=== PATIENT | female | born 1995 | race Caucasian/White ===

== ENCOUNTER 2024-06-23 10:54 | Outpatient (AMB) | payer MEDICAID, SELFPAY ==
[2024-06-23 11:07] VITALS: BP 99/58; PULSE 98; RESP 18; TEMP 36.2; O2SAT 98; BMI 20.1
--- NOTE | 2024-06-23 11:07 | AMB.OBINITIA ---
Vital Signs 06/23/24 11:07 Height 1.65 m Height Method Stated Weight 54.885 kg Weight Measurement Method Standing Scale BMI 20.1 BP 99/58 L Blood Pressure Source Automatic Cuff Blood Pressure Location Left Upper Arm Position Sitting Respiration 18 Pulse 98 Pulse Source Monitor Temp 97.2 F Temp Source Oral Pulse Oximetry (%) 98 Oxygen Delivery Method Room Air Allergies/Home Meds Allergies & Medications Allergies No Known Allergies Allergy (Verified 06/23/24 11:08) Medication Reconciliation No Known Home Medications 06/23/24 [History Confirmed 06/23/24] Intake Visit Data Collection New Patient or Established: New Patient (never been to [facility]) Reason for Visit:: Initial OB visit Seen by Clinical Staff ONLY (RN/MA): No Scientific Affairs Manager Required: No Do You Feel Safe at Home: Yes Authorities Contacted: N/A PCP or OBGYN visit in last 3 months: Yes Hx Now: Yes Are you currently on any form of Control: No Last menstrual period: 01/08/24 Pain Present Currently: No Pain Scale Used: Dewitt-Gil/Numerical Pain scale:: 0 Smoking Status Smoking Status: Never smoker Questionnaires Covid-19 Vaccine Questionnaire Has patient been vacinated for Covid-19 Have you been vacinated for Covid-19: No PHQ-9 PHQ-2 Over the last 2 weeks, how often have you been bothered by any of the following problems? 1. Little interest or pleasure in doing things: not at all 2. Feeling down, depressed, or hopeless: not at all Total score: 0 PHQ-9 3. Trouble falling or staying asleep, or sleeping too much: Not at all 4. Feeling tired or having little energy: Not at all 5. Poor appetite or overeating: Not at all 6. Feeling bad about yourself - or that you are a failure or have let yourself or your family down: Not at all 7. Trouble concentrating on things, such as reading the newspaper or watching television: Not at all 8. Moving or speaking so slowly that other people could have noticed? - Or the opposite - being so fidgety or restless that you have been moving around a lot more than usual: not at all 9. Thoughts that you would be better off or of hurting yourself in some way: Not at all Total score: 0 If you checked off any problems, how difficult have these problems made it for you to do your work, take care of things at home, or get along with other people?: not difficult at all Source: Developed by Drs. Johnny Art, Earline Dickerson, Miguel Mejia and colleagues, with an educational abhinav from [employer] Depression screen completed yes Social History Living Situation History Marital Status: Lives With: Family Housing: House Tobacco History Smoking Status: Never smoker Second Hand Smoke Exposure: No Alcohol History Alcohol Intake: Never Domestic Abuse History Do You Feel Safe at Home: Yes Past Medical History Past Medical History Have you ever been diagnosed with any of the following: Reproductive Problems Breast Cancer: No Endometriosis: No Fibroids: No Genital Herpes: No Gonorrhea: No Pelvic Inflammatory Disease: No Polycystic Ovarian Syndrome: No Previous Pregnancies: Yes (Vaginal delivery x 2 in the past) Syphilis: No Uterine Prolapse: No History of Present Illness HPI Narrative The patient is a 28-year-old -0-0-2 status post vaginal delivery x 2 in the past. Her children are young approximately 3 and 1. She is still breast-feeding her youngest. She delivered in [place] at a birthing center previously. Both deliveries were uncomplicated. She stated the first 1 was long the second was very fast. She did have stitches with both deliveries and no epidurals with either babies. OB Ultrasound Indication Indication: Size and dates OB Ultrasound Ultrasound technique: transabdominal Gestational sac assessment: Presence, location, size, shape: Live intrauterine at approximately 24 weeks seen. Will order structural survey. OB Initial Visit OB Flowsheet OB Flowsheet Initial Weight: Not Recorded Date <del>?</del> EGA Weight Edema CTX Effacement BP Fundal ht Pres Dilation Effacement Station Visit Note Alb Glu FHR Mov 06/23/24 <del>?</del> 24w 0d 54.885 kg 99/58 Fundal height 24. No bleeding no cramping. labs and structural survey ordered. 140 active Menstrual History Menstrual reliability: definite Flow: normal Menstrual regularity: regular Monthly: Yes Age at menarche: 13 On control pills at conception: No OB History : 3 Para: 2 Hx # Pregnancies: 0 Hx Total # of Abortions (Spontaneous & Elective): 0 # of Living Children: 2 Delivery History 1st : Child's name: SHAHID date: 09/23/21 sex: female Gestational age at delivery (weeks): 40 Delivery type: vaginal weight (lbs): 3175.147 g Delivery complications: None ,born at a birthing center History of depression before or after : No 2nd : Child's name: ELA date: 06/08/23 sex: male Gestational age at delivery (weeks): 39 Delivery type: vaginal Delivery complications: None. Rapid delivery. Born at the birthing center. History of depression before or after : No Infection History & Risk Evaluation History of STDs: none HIV risk evaluation: low risk Hepatitis B risk evaluation: low risk Patient or partner has history of Genital Herpes: No Varicella/chicken pox status: immunized Genetic Screening & History Genetic Screening/Teratology Counseling - Includes patient, baby's father, or anyone in either family with: 1. Patient's age 35 years or older as of estimated date of delivery: No 2. Thalassemia (Croatian, Iraqi, Mediterranean, or Background); MCV less than 80: No 3. Neural Tube Defect (Meningomyelocele, Spina Bifida, or Anencephaly): No 4. Congenital Heart Defect: No 5. Down Syndrome: No 6. Hudson-Sachs (Ashkenazi Restorationism, Cajun, Citizen Of [place]): No 7. Colby Disease (Ashkenazi Restorationism): No 8. Familial Dysautonomia (Ashkenazi Restorationism): No 9. Sickle Cell Disease or Trait (): No 10. Hemophilia or other blood disorders: No 11. Muscular Dystrophy: No 12. Cystic Fibrosis: No 13. Omer's Chorea: No 14. Mental Retardation/Autism: No 15. Other inherited genetic or chromosomal disorder: No 16. Maternal Metabolic Disorder (EG,TYPE 1 Diabetes, PKU): No 17. Patient or baby's father had a child with defects not listed above: No 18. Recurrent loss or a stillbirth: No 19. Medications (including supplements, vitamins, herbs or otc drugs)/illicit/recreational drugs/alcohol since last menstrual period: No 20. Any other: No Infection History 1. Live with someone with TB or exposed to TB: No 2. Rash or viral illness since last menstrual period: No 3. Hepatitis B,C: No Other (see comments) Source: [employer] Exam Narrative Physical exam: Fundal height 24 General General Appearance: alert, in no apparent distress, comfortable, cooperative, healthy appearing, well developed and well groomed Neck Neck exam: Present normal inspection, full ROM and trachea midline Chest Chest inspection: Present normal inspection and symmetric chest wall rise Resp Respiratory exam: Present normal lung sounds bilaterally Card Cardiovascular exam: Present regular rate, normal rhythm and normal heart sounds Abdominal Abdominal exam: Present soft and normal bowel sounds Extremities Extremities exam: Present normal inspection and full ROM Psych Psychiatric exam: Present normal affect and normal mood Skin Skin exam: Present warm, dry, intact and normal color Assessment & Plan Diagnosis / Problem List (1) : Status: Acute Qualifiers: Weeks of gestation: 24 weeks Qualified Code(s): Z3A.24 - 24 weeks gestation of Assessment and Plan: Pap deferred as it was just done. Patient is already 24 weeks. Order structural survey and all lab work. Increased calories as patient is still breast-feeding her 1-year-old. Patient desires natural labor and no induction and no epidural. She will follow-up in 4 weeks. LMP 01/08/2024 EDC 10/13/2024 Office Procedures OB Clinic LOC & Office Proc's Nursing/Assessment Patient Status: Initial/New Patient OB Clinic Nursing Assessment: BP Monitoring, Medication Reconciliation, Update PMH in EMR and Vital Signs OB Clinic Coordination of Care: Consent,records obtained, informed consent, Education Simp Pt/Fam and Staff clarify orders Special Needs: Heart tones New Patient Charge New Patient Point Assignment: [id number] New Patient Point Charge: BULK FILLER Level 3 ([id number])
== END 2024-06-23 11:37 | disposition home or self-care (01) ==
LOC: HODSOBC 10:54
PROVIDERS: PCP Physician Assistant; Referring Provider Physician Assistant; Supervising Provider Obstetrics & Gynecology; Visit Provider Obstetrics & Gynecology
DX: Z34.82 Encounter for supervision of other normal pregnancy, second trimester (principal); Z3A.24 24 weeks gestation of pregnancy
CPT/HCPCS: 99203; G0463

== ENCOUNTER 2024-07-21 10:28 | Outpatient (AMB) | payer MEDICAID, SELFPAY ==
[2024-07-21 10:42] VITALS: BP 102/60; PULSE 74; RESP 17; TEMP 36.7; O2SAT 98; BMI 20.9
--- NOTE | 2024-07-21 10:42 | AMB.OBVISIT ---
Vital Signs 07/21/24 10:42 Height 1.65 m Height Method Stated Weight 57.153 kg Weight Measurement Method Standing Scale BMI 20.9 BP 102/60 Blood Pressure Source Automatic Cuff Blood Pressure Location Right Upper Arm Position Sitting Respiration 17 Pulse 74 Pulse Source Monitor Temp 98.1 F Temp Source Temporal Artery Scan Pulse Oximetry (%) 98 Oxygen Delivery Method Room Air Allergies/Home Meds Allergies & Medications Allergies No Known Allergies Allergy (Verified 07/21/24 10:43) Medication Reconciliation No Known Home Medications 06/23/24 [History Confirmed 07/21/24] Intake Visit Data Collection New Patient or Established: Established Patient (seen at [facility] within 3 years) Reason for Visit:: OBC Seen by Clinical Staff ONLY (RN/MA): No Environmental Remediation Consultant Required: No Do You Feel Safe at Home: Yes Authorities Contacted: N/A PCP or OBGYN visit in last 3 months: Yes Date of Last PCP or OBGYN visit: 06/23/24 Hx Now: Yes Are you currently on any form of Control: No Pain Present Currently: Yes Pain Location: Back, Thigh and Leg Pain Scale Used: Dewitt-Gil/Numerical Pain scale:: 5 Smoking Status Smoking Status: Never smoker Questionnaires Covid-19 Vaccine Questionnaire Has patient been vacinated for Covid-19 Have you been vacinated for Covid-19: No PHQ-9 PHQ-2 Over the last 2 weeks, how often have you been bothered by any of the following problems? 1. Little interest or pleasure in doing things: not at all 2. Feeling down, depressed, or hopeless: not at all Total score: 0 PHQ-9 3. Trouble falling or staying asleep, or sleeping too much: Not at all 4. Feeling tired or having little energy: Not at all 5. Poor appetite or overeating: Not at all 6. Feeling bad about yourself - or that you are a failure or have let yourself or your family down: Not at all 7. Trouble concentrating on things, such as reading the newspaper or watching television: Not at all 8. Moving or speaking so slowly that other people could have noticed? - Or the opposite - being so fidgety or restless that you have been moving around a lot more than usual: not at all 9. Thoughts that you would be better off or of hurting yourself in some way: Not at all Total score: 0 If you checked off any problems, how difficult have these problems made it for you to do your work, take care of things at home, or get along with other people?: not difficult at all Source: Developed by Drs. Johnny Art, Earline Dickerson, Miguel Mejia and colleagues, with an educational abhinav from [employer]. Depression screen completed yes Social History Living Situation History Marital Status: Lives With: Family Housing: House Housing Other:: Patient stays home with her 3-year-old daughter and 1-year-old son. 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 No complications. History of Present Illness HPI Narrative The patient is a 28-year-old -0-0-2 who is from the [place] area and had both of her babies at a birthing center previously. She is a 3-year-old and 1-year-old. She moved to [place] to be closer to family. She stays at home with her children. Care OB Visit Log OB Flowsheet Initial Weight: Not Recorded Date <del>?</del> EGA Weight BP Alb Glu CTX Pres Fundal ht FHR Mov Dilation Station Effacement Hx Notes Visit Note 06/23/24 <del>?</del> 24w 0d 54.885 kg 99/58 140 active Fundal height 24. No bleeding no cramping. labs and structural survey ordered. 07/21/24 <del>?</del> 28w 0d 57.153 kg 102/60 28 150 active Positive movement no bleeding no loss of fluids. I had ordered a structural survey this has not been authorized yet. Order again. NEVA Calculator Estimated Delivery Date Method Current WG Current Estimate 10/13/24 Ultrasound #1 28w 0d Other Estimates 10/14/24 LMP (Certain) 27w 6d Comments: LMP 01/08/2024. Patient is a 28-year-old -0-0-2 labs: O+/antibody negative/RPR NR/Rubella Nonimmune/HepBSag -/HIV-/GC -/chlamydia negative/urine culture negative Ordered GCT. Missed NIPT. Expected Delivery Route/Plan Patient had vaginal delivery x 2 in the past and a birthing center. Anticipate . Patient will probably want to labor and deliver as natural as possible. Notes Visit Date: 06/23/24 Last Updated by: Latrice Arenas (OB Clinic)MD Patient is a 28-year-old -0-0-2 status post vaginal delivery x 2 in the past both were delivered in [place] and both at a birthing center. Patient has moved home this . She is staying home to take care of her children. She is still breast-feeding the 1-year-old. Her mother is with her today as is her 3-year-old daughter. LMP 01/08/2024 EDC 10/13/2024. Office Procedures OB Clinic LOC & Office Proc's Nursing/Assessment Patient Status: Established Patient OB Clinic Nursing Assessment: Medication Reconciliation, Update PMH in EMR and Vital Signs OB Clinic Coordination of Care: Complex Care and Chronic Disease 1-5, Consent,records obtained, informed consent, Education Simp Pt/Fam, Lab and Imaging orders and Staff clarify orders Special Needs: Heart tones Established Patient Charge Established Patient Point Assignment: 130 Established Patient Point Charge: EP Level 4 (120-155)
== END 2024-07-21 11:18 | disposition home or self-care (01) ==
LOC: HODSOBC 10:28
PROVIDERS: PCP Physician Assistant; Referring Provider Physician Assistant; Supervising Provider Obstetrics & Gynecology; Visit Provider Obstetrics & Gynecology
DX: Z34.83 Encounter for supervision of other normal pregnancy, third trimester (principal); Z3A.28 28 weeks gestation of pregnancy
CPT/HCPCS: 99214; G0463

== ENCOUNTER → 2024-07-27 | Outpatient (CLI) | payer MEDICAID, SELFPAY ==
--- NOTE | 2024-07-27 09:09 | XR_ITS ---
Examination: age complete after first trimester TECHNIQUE: Multiple transabdominal sonographic images pelvis Date and time: July 27, 2024 0924 hours INDICATIONS: 24 week by history unknown presentation. FINDINGS: Viable intrauterine gestation cephalic presentation spine anterior Cardiac motion 132 BPM Placenta anterior grade 2 Umbilical cord insertion seen Amniotic fluid index 14.4 cm Cervix 3.4 cm Ovaries obscured by bowel gas Estimated gestational age 28 weeks 5 days Estimated weight 1283 g IMPRESSION: Viable intrauterine gestation cephalic presentation
== END | disposition home or self-care (01) ==
PROVIDERS: PCP Nurse Practitioner Primary Care; Referring Provider Obstetrics & Gynecology; Visit Provider Obstetrics & Gynecology
DX: Z3A.24 24 weeks gestation of pregnancy (principal)
CPT/HCPCS: 76810

== ENCOUNTER 2024-09-24 10:31 | Outpatient (AMB) | payer MEDICAID, SELFPAY ==
[2024-09-24 11:08] VITALS: BP 113/65; PULSE 77; RESP 16; TEMP 36.6; O2SAT 97; BMI 22.5
--- NOTE | 2024-09-24 11:08 | OBCLNT_ITS ---
Vital Signs 09/24/24 11:08 Height 1.65 m Height Method Stated Weight 61.292 kg Weight Measurement Method Standing Scale BMI 22.5 BP 113/65 Blood Pressure Source Automatic Cuff Blood Pressure Location Left Upper Arm Position Sitting Respiration 16 Pulse 77 Pulse Source Monitor Temp 98 F Temp Source Oral Pulse Oximetry (%) 97 Oxygen Delivery Method Room Air Allergies/Home Meds Allergies & Medications Allergies No Known Allergies Allergy (Verified 09/24/24 11:09) Medication Reconciliation No Known Home Medications 06/23/24 [History Confirmed 09/24/24] Intake Visit Data Collection New Patient or Established: Established Patient (seen at [facility] within 3 years) Reason for Visit:: CARE Seen by Clinical Staff ONLY (RN/MA): No Cell Manager Required: No Do You Feel Safe at Home: Yes Authorities Contacted: N/A PCP or OBGYN visit in last 3 months: Yes Hx Now: Yes Are you currently on any form of Control: No Pain Present Currently: No Pain Scale Used: Dewitt-Gil/Numerical Pain scale:: 0 Smoking Status Smoking Status: Never smoker Questionnaires Covid-19 Vaccine Questionnaire Has patient been vacinated for Covid-19 Have you been vacinated for Covid-19: Yes PHQ-9 PHQ-2 Over the last 2 weeks, how often have you been bothered by any of the following problems? 1. Little interest or pleasure in doing things: not at all 2. Feeling down, depressed, or hopeless: not at all Total score: 0 PHQ-9 3. Trouble falling or staying asleep, or sleeping too much: Not at all 4. Feeling tired or having little energy: Not at all 5. Poor appetite or overeating: Not at all 6. Feeling bad about yourself - or that you are a failure or have let yourself or your family down: Not at all 7. Trouble concentrating on things, such as reading the newspaper or watching television: Not at all 8. Moving or speaking so slowly that other people could have noticed? - Or the opposite - being so fidgety or restless that you have been moving around a lot more than usual: not at all 9. Thoughts that you would be better off or of hurting yourself in some way: Not at all Total score: 0 Source: Developed by Drs. Johnny L. Earline Art Kurt Kroenke and colleagues, with an educational abhinav from [facility]. Depression screen completed yes Social History Living Situation History Marital Status: Lives With: Family Housing: House Housing Other:: Patient stays home with her 3-year-old daughter and 1-year-old son. 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 Care OB Visit Log OB Flowsheet Initial Weight: Not Recorded Date -?-?-?-?-?-?-?-?-?-?-?-?- EGA Weight BP Alb Glu CTX Pres Fundal ht FHR Mov Dilation Station Effacement Hx Notes Visit Note 06/23/24 -?-?-?-?-?-?-?-?-?-?-?-?- 24w 0d 54.885 kg 99/58 140 active Fundal height 24. No bleeding no cramping. labs and structural survey ordered. 07/21/24 -?-?-?-?-?-?-?-?-?-?-?-?- 28w 0d 57.153 kg 102/60 28 150 active Positive movement no bleeding no loss of fluids. I had ordered a structural survey this has not been authorized yet. Order again. 09/24/24 -?-?-?-?-?-?-?-?-?-?-?-?- 37w 2d 61.292 kg 113/65 occasional cephalic 37 active Patient feels good movement and feels pressure. Reny mcgrath has a plan. NEVA Calculator Estimated Delivery Date Method Current WG Current Estimate 10/13/24 Ultrasound #1 37w 2d Other Estimates 10/14/24 LMP (Certain) 37w 1d Expected Delivery Route/Plan Patient had vaginal delivery x 2 in the past at a birthing center. Anticipate . Patient will probably want to labor and deliver as natural as possible. Specific Issue/Plans labs up-to-date on the chart: O+/antibody negative/rubella nonimmune/RPR nonreactive/HIV negative/GC negative/chlamydia negative/urine culture negative/1 hour glucose elevated 158/no 3-hour glucose [facility] 28 [facility] SS WNL Notes Visit Date: 09/24/24 Last Updated by: Latrice Arenas (OB Clinic)MD Discussed patient's plan. She has nothing written but she read it to me on her phone. She prefers no IV. She will take IM Pitocin. She prefers delayed cord clamping. She wants to ambulate in labor. She wants to go as natural as possible. She is also requesting no male providers. We did discuss at length that I am not sure I can guarantee that she is going to have a female provider. She does not want to be induced. She would like to leave the hospital soon as possible with her baby. She is going to decline vitamin K eyedrops and hep B vaccine for the baby. Patient delivered at [facility] last time in [place]. Her sister is present today who will be there and labor. Visit Date: 06/23/24 Last Updated by: Latrice Arenas (OB Clinic)MD Patient is a 28-year-old -0-0-2 status post vaginal delivery x 2 in the past both were delivered in [place] and both at a birthing center. Patient has moved home this . She is staying home to take care of her children. She is still breast-feeding the 1-year-old. Her mother is with her today as is her 3-year-old daughter. LMP 01/08/2024 EDC 10/13/2024. Office Procedures OB Clinic LOC & Office Proc's Nursing/Assessment Patient Status: Established Patient OB Clinic Nursing Assessment: Medication Reconciliation, Update PMH in EMR and Vital Signs OB Clinic Coordination of Care: Complex Care and Chronic Disease 1-5, Consent,records obtained, informed consent, Education Simp Pt/Fam, 1 Ins Authorization, Lab and Imaging orders, Results/Orders obtained and Staff clarify orders Special Needs: Heart tones Established Patient Charge Established Patient Point Assignment: 150 Established Patient Point Charge: EP Level 4 (120-155)
== END 2024-09-24 11:48 | disposition home or self-care (01) ==
LOC: HODSOBC 10:31
PROVIDERS: PCP Obstetrics & Gynecology; Referring Provider Obstetrics & Gynecology; Supervising Provider Obstetrics & Gynecology; Visit Provider Obstetrics & Gynecology
DX: Z34.83 Encounter for supervision of other normal pregnancy, third trimester (principal); Z3A.37 37 weeks gestation of pregnancy
CPT/HCPCS: 99214; G0463

== ENCOUNTER 2024-10-04 09:50 | Outpatient (AMB) | payer MEDICAID, SELFPAY ==
--- NOTE | 2024-10-04 09:52 | OBCLNT_ITS ---
Vital Signs 10/04/24 09:58 Height 1.65 m Height Method Stated Weight 60.781 kg Weight Measurement Method Standing Scale BMI 22.3 BP 103/67 Blood Pressure Source Automatic Cuff Blood Pressure Location Left Upper Arm Position Sitting Respiration 16 Pulse 85 Pulse Source Monitor Temp 97 F Temp Source Oral Pulse Oximetry (%) 98 Oxygen Delivery Method Room Air Allergies/Home Meds Allergies & Medications Allergies No Known Allergies Allergy (Verified 10/04/24 10:00) Medication Reconciliation No Known Home Medications 06/23/24 [History Confirmed 10/04/24] Intake Visit Data Collection New Patient or Established: Established Patient (seen at [facility] within 3 years) Reason for Visit:: CARE Seen by Clinical Staff ONLY (RN/MA): No Actuary Manager Required: No Do You Feel Safe at Home: Yes Authorities Contacted: N/A PCP or OBGYN visit in last 3 months: Yes Hx Now: Yes Are you currently on any form of Control: No Pain Present Currently: No Pain Scale Used: Dewitt-Gil/Numerical Pain scale:: 0 Smoking Status Smoking Status: Never smoker Questionnaires Covid-19 Vaccine Questionnaire Has patient been vacinated for Covid-19 Have you been vacinated for Covid-19: No PHQ-9 PHQ-2 Over the last 2 weeks, how often have you been bothered by any of the following problems? 1. Little interest or pleasure in doing things: not at all 2. Feeling down, depressed, or hopeless: not at all Total score: 0 PHQ-9 3. Trouble falling or staying asleep, or sleeping too much: Not at all 4. Feeling tired or having little energy: Not at all 5. Poor appetite or overeating: Not at all 6. Feeling bad about yourself - or that you are a failure or have let yourself or your family down: Not at all 7. Trouble concentrating on things, such as reading the newspaper or watching television: Not at all 8. Moving or speaking so slowly that other people could have noticed? - Or the opposite - being so fidgety or restless that you have been moving around a lot more than usual: not at all 9. Thoughts that you would be better off or of hurting yourself in some way: Not at all Total score: 0 Source: Developed by Drs. Johnny LEarline Amaya Kurt Kroenke and colleagues, with an educational abhinav from [employer]. Depression screen completed yes Social History Living Situation History Lives With: Family Housing: House Housing Other:: Patient stays home with her 3-year-old daughter and 1-year-old son. 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 No complications Other Relevant History: Patient has no chronic medical problems including diabetes asthma or hypertension History of Present Illness HPI Narrative The patient is a 29-year-old -0-0-2 who presents for care. Care OB Visit Log OB Flowsheet Initial Weight: Not Recorded Date -?-?-?-?-?-?-?-?-?-?-?-?- EGA Weight BP Alb Glu CTX Pres Fundal ht FHR Mov Dilation Station Effacement Hx Notes Visit Note 06/23/24 -?-?-?-?-?-?-?-?-?-?-?-?- 24w 0d 54.885 kg 99/58 140 active Fundal height 24. No bleeding no cramping. labs and structural survey ordered. 07/21/24 -?-?-?-?-?-?-?-?-?-?-?-?- 28w 0d 57.153 kg 102/60 28 150 active Positive movement no bleeding no loss of fluids. I had ordered a structural survey this has not been authorized yet. Order again. 09/24/24 -?-?-?-?-?-?-?-?-?-?-?-?- 37w 2d 61.292 kg 113/65 occasional cephalic 37 active Patient feels good movement and feels pressure. Reny mcgrath has a plan. 10/04/24 -?-?-?-?-?-?-?-?-?-?-?-?- 38w 5d 60.781 kg 103/67 occasional cephalic 36 143 active 1.5 -1 80 Patient feels pressure. Good movement no vaginal bleeding Group B strep drawn today NEVA Calculator Estimated Delivery Date Method Current WG Current Estimate 10/13/24 Ultrasound #1 38w 5d Other Estimates 10/14/24 LMP (Certain) 38w 4d Expected Delivery Route/Plan Patient had vaginal delivery x 2 in the past at a birthing center. Anticipate . Patient will probably want to labor and deliver as natural as possible. Specific Issue/Plans labs up-to-date on the chart: O+/antibody negative/rubella nonimmune/RPR nonreactive/HIV negative/GC negative/chlamydia negative/urine culture negative/1 hour glucose elevated 158/no 3-hour glucose done OB [facility] 28 weeks SS WNL Notes Visit Date: 10/04/24 Last Updated by: Latrice Arenas (OB Clinic)MD Labor precautions given. Patient has plan and would like to labor at home as long as possible. She would like to leave with the baby as soon as possible after . Visit Date: 09/24/24 Last Updated by: Latrice Arenas (OB Clinic)MD Discussed patient's plan. She has nothing written but she read it to me on her phone. She prefers no IV. She will take IM Pitocin. She prefers delayed cord clamping. She wants to ambulate in labor. She wants to go as natural as possible. She is also requesting no male providers. We did discuss at length that I am not sure I can guarantee that she is going to have a female provider. She does not want to be induced. She would like to leave the hospital soon as possible with her baby. She is going to decline vitamin K eyedrops and hep B vaccine for the baby. [facility] [place] Her sister is present today who will be there and labor. Visit Date: 06/23/24 Last Updated by: Latrice Arenas (OB Clinic)MD Patient is a 28-year-old -0-0-2 status post vaginal delivery x 2 in the past both were delivered in [place] and both at a birthing center. Patient has moved home this . She is staying home to take care of her children. She is still breast-feeding the 1-year-old. Her mother is with her today as is her 3-year-old daughter. LMP 01/08/2024 EDC 10/13/2024. Office Procedures OB Clinic LOC & Office Proc's Nursing/Assessment Patient Status: Established Patient OB Clinic Nursing Assessment: Medication Reconciliation, Update PMH in EMR and Vital Signs OB Clinic Coordination of Care: Complex Care and Chronic Disease 1-5, Consent,records obtained, informed consent, Education Simp Pt/Fam, 1 Ins Authorization, Lab and Imaging orders, Results/Orders obtained and Staff clarify orders Special Needs: Heart tones Miscellaneous Interventions: Culture Specimen Collection and Pelvic no cultures Established Patient Charge Established Patient Point Assignment: 175 Established Patient Point Charge: EP Level 5 (160-above) Assessment & Plan Diagnosis / Problem List (1) : Status: Acute Qualifiers: Weeks of gestation: 38 weeks Qualified Code(s): Z3A.38 - 38 weeks gestation of Plan: Doing well. Labor precautions given. Follow-up in 1 week. Additional Plan Follow Up: 1 Week
[2024-10-04 09:58] VITALS: BP 103/67; PULSE 85; RESP 16; TEMP 36.1; O2SAT 98; BMI 22.3
== END 2024-10-04 10:31 | disposition home or self-care (01) ==
LOC: HODSOBC 09:50
PROVIDERS: PCP Obstetrics & Gynecology; Referring Provider Obstetrics & Gynecology; Supervising Provider Obstetrics & Gynecology; Visit Provider Obstetrics & Gynecology
DX: Z34.83 Encounter for supervision of other normal pregnancy, third trimester (principal); Z3A.38 38 weeks gestation of pregnancy; Z36.85 Encounter for antenatal screening for Streptococcus B
CPT/HCPCS: 99215; G0463

== ENCOUNTER 2024-10-13 10:14 | Outpatient (AMB) | payer MEDICAID, SELFPAY ==
[2024-10-13 10:28] VITALS: BP 113/75; PULSE 82; RESP 16; TEMP 36.2; O2SAT 98; BMI 22.6
--- NOTE | 2024-10-13 10:28 | OBCLNT_ITS ---
Vital Signs 10/13/24 10:28 Height 1.65 m Height Method Stated Weight 61.462 kg Weight Measurement Method Standing Scale BMI 22.6 BP 113/75 Blood Pressure Source Automatic Cuff Blood Pressure Location Left Upper Arm Position Sitting Respiration 16 Pulse 82 Pulse Source Monitor Temp 97.2 F Temp Source Oral Pulse Oximetry (%) 98 Oxygen Delivery Method Room Air Allergies/Home Meds Allergies & Medications Allergies No Known Allergies Allergy (Verified 10/13/24 10:29) Medication Reconciliation No Known Home Medications 06/23/24 [History Confirmed 10/13/24] Intake Visit Data Collection New Patient or Established: Established Patient (seen at [facility] within 3 years) Reason for Visit:: OBC Seen by Clinical Staff ONLY (RN/MA): No Stockroom Inventory 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 1. Little interest or pleasure in doing things: not at all 2. Feeling down, depressed, or hopeless: not at all Total score: 0 PHQ-9 3. Trouble falling or staying asleep, or sleeping too much: Not at all 4. Feeling tired or having little energy: Not at all 5. Poor appetite or overeating: Not at all 6. Feeling bad about yourself - or that you are a failure or have let yourself or your family down: Not at all 7. Trouble concentrating on things, such as reading the newspaper or watching television: Not at all 8. Moving or speaking so slowly that other people could have noticed? - Or the opposite - being so fidgety or restless that you have been moving around a lot more than usual: not at all 9. Thoughts that you would be better off or of hurting yourself in some way: Not at all Total score: 0 If you checked off any problems, how difficult have these problems made it for you to do your work, take care of things at home, or get along with other people?: not difficult at all Source: Developed by Drs. Johnny Art, Earline Dickerson, Miguel Mejia and colleagues, with an educational abhinav from [employer]. Depression screen completed yes Social History Living Situation History Lives With: Family Housing: House Housing Other:: Patient stays home with her 3-year-old daughter and 1-year-old son. 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 No bleeding no cramping. labs and structural survey ordered. 07/21/24 -?-?-?-?-?-?-?-?-?-?-?-?- 28w 0d 57.153 kg 102/60 28 150 active Positive movement no bleeding no loss of fluids. I had ordered a structural survey this has not been authorized yet. Order again. 09/24/24 -?-?-?-?-?-?-?-?-?-?-?-?- 37w 2d 61.292 kg 113/65 occasional cephalic 37 active Patient feels good movement and feels pressure. Reny mcgrath has a plan. 10/04/24 -?-?-?-?-?-?-?-?-?-?-?-?- 38w 5d 60.781 kg 103/67 occasional cephalic 36 143 active 1.5 -1 80 Patient feels pressure. Good movement no vaginal bleeding Group B strep drawn today 10/13/24 -?-?-?-?-?-?-?-?-?-?-?-?- 40w 0d 61.462 kg 113/75 occasional cephalic 35 156 active 3 -1 80 Occasional contractions no loss of fluid or vaginal bleeding Group B strep negative RIDGE done today 7.4 vertex presentation NEVA Calculator Estimated Delivery Date Method Current WG Current Estimate 10/13/24 Ultrasound #1 40w 0d Other Estimates 10/14/24 LMP (Certain) 39w 6d Expected Delivery Route/Plan Patient had vaginal delivery x 2 in the past at a birthing center. Anticipate . Patient will probably want to labor and deliver as natural as possible. Specific Issue/Plans labs up-to-date on the chart: O+/antibody negative/rubella nonimmune/RPR nonreactive/HIV negative/GC negative/chlamydia negative/urine culture negative/1 hour glucose elevated 158/no 3-hour glucose done OB [facility] 28 weeks SS WNL Notes Visit Date: 10/13/24 Last Updated by: Latrice Arenas ([facility] Clinic)MD Patient declined stripping membranes. Return in 1 week NST weekly starting Friday. Wants to go into labor on her own. Delivered at the center last time. Has plan. Visit Date: 10/04/24 Last Updated by: Latrice Arenas ([facility] Clinic)MD Labor precautions given. Patient has plan and would like to labor at home as long as possible. She would like to leave with the baby as soon as possible after . Visit Date: 09/24/24 Last Updated by: Latrice Arenas ([facility] Clinic)MD Discussed patient's plan. She has nothing written but she read it to me on her phone. She prefers no IV. She will take IM Pitocin. She prefers delayed cord clamping. She wants to ambulate in labor. She wants to go as natural as possible. She is also requesting no male providers. We did discuss at length that I am not sure I can guarantee that she is going to have a female provider. She does not want to be induced. She would like to leave the hospital soon as possible with her baby. She is going to decline vitamin K eyedrops and hep B vaccine for the baby. Patient delivered at [facility] last time in [place]. Her sister is present today who will be there and labor. Visit Date: 06/23/24 Last Updated by: Latrice Arenas (OB Clinic)MD Patient is a 28-year-old -0-0-2 status post vaginal delivery x 2 in the past both were delivered in [place] and both at a birthing center. Patient has moved home this . She is staying home to take care of her children. She is still breast-feeding the 1-year-old. Her mother is with her today as is her 3-year-old daughter. LMP 01/08/2024 EDC 10/13/2024. Office Procedures OB Clinic LOC & Office Proc's Nursing/Assessment Patient Status: Established Patient OB Clinic Nursing Assessment: Medication Reconciliation, Update PMH in EMR and Vital Signs OB Clinic Coordination of Care: Education Complex Pt/Fam, Consent,records obtained, informed consent, Lab and Imaging orders and Staff clarify orders Special Needs: Heart tones Established Patient Charge Established Patient Point Assignment: 110 Established Patient Point Charge: EP Level 3 (80-115) Assessment & Plan Diagnosis / Problem List (1) : Status: Acute Qualifiers: Weeks of gestation: 40 weeks Qualified Code(s): Z3A.40 - 40 weeks gestation of Additional Plan Follow Up: 1 Week
== END 2024-10-13 11:13 | disposition home or self-care (01) ==
LOC: HODSOBC 10:14
PROVIDERS: PCP Obstetrics & Gynecology; Referring Provider Obstetrics & Gynecology; Supervising Provider Obstetrics & Gynecology; Visit Provider Obstetrics & Gynecology
DX: Z34.83 Encounter for supervision of other normal pregnancy, third trimester (principal); Z3A.40 40 weeks gestation of pregnancy
CPT/HCPCS: 99213; G0463

== ENCOUNTER 2024-10-17 11:11 | Inpatient (IN) | payer MEDICAID, SELFPAY ==
[2024-10-17] VITALS (25 sets, daily range): BP systolic 99–133; BP diastolic 59–84; PULSE 59–113; RESP 12–98; TEMP 36.3–36.9; O2SAT 73–100; BMI 23.2
--- NOTE | 2024-10-17 11:44 | PD.LDHP ---
Documentation for date of: 10/17/24 OB Labor/Induct. HPI History of Present Illness Chief complaint: labor pains : 3 Para: 2 Term pregnancies: 2 pregnancies: 0 Living children: 2 History of Abortions: Spontaneous and Elective: 0 NEVA: 10/13/24 Gestational Age (weeks): 40 Gestational Age (days): 4 History of present illness: 29 yo IUP 40w4d by best dates with PNC at [facility] Clinic presents to [facility] fully dilated per RN exam. Pt refused to allow me to check her. She reports normal movement and no bleeding or leaking. Her records says she had an abnormal 1 GTT and did not have a 3 GTT. Pt states that she had a 3 GTT and it was normal. I dont see any labs in her chart at this time. She has a history of 2 prior full-term normal vaginal deliveries at a birthing center without complication. Comments: Past medical history: Denies Past surgical history: Denies Social history: Denies any alcohol drug use or smoking Family history: Denies Medications: multivitamin Allergies no known drug allergies Review of Systems Review of Systems Narrative Review of Systems: Denies any chest pain palpitations cough fever shortness of breath or lower extremity pain. Denies any headache change in vision or right upper quadrant pain Meds Home Medications and Allergies Home Medications ?Medication ?Instructions ?Recorded ?Confirmed ?Type No Known Home Medications 06/23/24 10/13/24 History Allergies Allergy/AdvReac Type Severity Reaction Status Date / Time No Known Allergies Allergy Verified 10/13/24 10:29 OB Exam Physical Exam Vital signs: Pulse BP Pulse Ox 67 115/73 98 10/17/24 11:29 10/17/24 11:29 10/17/24 11:33 Routine HEENT Exam Comments: Declines exam Routine Respiratory Exam Comments: Declines exam Routine Cardiovascular Exam Comments: Declines exam Routine Abdominal Exam Comments: Declines exam Detailed Labor and Delivery Exam Comments: See RN notes. Declines exam by me at 11:45. Routine Extremities Exam Comments: Nontender or edema Routine Back/Spine/Pelvis Exam Comments: No flank tenderness Routine Skin Exam Comments: No gross rashes or lesions Routine Neurological Exam Comments: No focal deficit OB Results Labs 10/17/24 11:50 Impressions Impression: Intrauterine at 40 weeks and 4 days Active Labor Anticipate spontaneous vaginal delivery Informed consent was obtained. Pt refuses to be examined. She refuses IV. She refuses Pitocin after the baby delivers and placenta is out. She does not want me to touch the baby as it is coming through her vagina. She does not want me to touch her or the perineum as the baby is coming out. She is not worried about lacerations or needing a repair. She declines operative vaginal delivery. She wont let us see the vagina to tell when the head is crowing. She wants to keep the blanket over her and keep covered up. The RN read to me her birthing plan. She is allowing an EFM at this time which is Category 1. I utilized a shared decision-making approach when counseling her about my customary medical management during delivery and and how that differs from her birthing plan. I provided her with current and accurate information regarding the efficacy, benefits, and risks associated with my customary plan of care. This information was provided in a clear, balanced, and supportive way to enable her to understand the expected outcomes associated with her various options and empowered her to make an informed decision consistent with her values and preferences. She understands that her birthing plan may increase her risk of a severe laceration that may result in future problems with fistula or incontinence. She understands that her plan may result in an increased risk of shoulder dystocia and injury to her baby that could result in a permanent neurologic injury or . She is aware that delayed use of uterotonics or placenta delivery could results in hemorrhage or severe anemia that could be life threatening. Overall her plan could result in delayed implementation of life saving measures which could be a detriment to her buttermaker helper health and survival. I discussed with the Neurology Teacher Dr Belle the patients birthing plan and care for her baby. I gowned and gloved and sat quietly in the corner of the room monitoring the tracing and her vitals and condition however the patient does not want me in the room until she is ready for me.
[2024-10-17 12:13] LABS: Basophils # (Auto) 0.1 Thou/mm3 (0.0-0.2); Basophils % (Auto) 1 % (0-2.5); Eosinophils # (Auto) 0.0 Thou/mm3 (0.0-0.5); Eosinophils % (Auto) 0 % (0-10); Hematocrit 36.2 % (36.0-46.0); Hemoglobin 12.2 g/dL (12.0-16.0); Immature Granulocytes Auto 0.06 Thou/mm3 (0.00-0.00); Lymphocytes # (Auto) 1.0 Thou/mm3 (1.0-4.8); Lymphocytes % (Auto) 10 % (10-50); Mean Corpuscular HGB Conc 33.7 g/dl (31.0-37.0); Mean Corpuscular Hemoglobin 29.5 pg (25.0-35.0); Mean Corpuscular Volume 87 fL (80-100); Monocytes # (Auto) 0.7 Thou/mm3 (0.0-0.8); Monocytes % (Auto) 7 % (0-12); Neutrophils # (Auto) 8.1 Thou/mm3 (1.8-7.7); Neutrophils % (Auto) 82 % (37-80); Nucleated Red Blood Cell # 0.00 Thou/mm3 (0.00-0.00); Nucleated Red Blood Cell % 0 /100 WBC (0); Platelet Count 154 Thou/mm3 (140-440); RDW Standard Deviation 41.3 fL (36.4-46.3); Red Blood Count 4.14 Miln/mm3 (4.00-5.20); White Blood Count 9.9 Thou/mm3 (3.6-11.0)
[2024-10-17 12:55] LABS: Syphilis Nonreactive (Nonreactive)
[2024-10-17] MEDS: OXYTOCIN in NS 20 units 20 UNIT/1,000 ML BAG 125 UNIT IV ×2 (13:26→21:04)
[2024-10-17] MEDS: TRANEXAMIC ACID 1,000 MG IVPB 1,000 MG/100 ML BAG 200 MG IV (13:27)
[2024-10-17] MEDS: METHYLERGONOVINE INJ 0.2 MG/ML VIAL IM (13:28)
--- NOTE | 2024-10-17 14:12 | PD.GYNPROC ---
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 Date of procedure: 10/17/24 Procedure Performed: Exam under anesthesia Uterine curettage Placement of Bakri Intrauterine Balloon Indication: day #0 status post spontaneous vaginal delivery hemorrhage Uterine atony refractory to uterotonics and TXA Pre-Op diagnosis: day #0 status post spontaneous vaginal delivery hemorrhage Uterine atony refractory to uterotonics and TXA Post-Op diagnosis: day #0 status post spontaneous vaginal delivery hemorrhage Uterine atony refractory to uterotonics and TXA Anesthesia type: General Procedure description: Patient refused any interventions including IVs and intramuscular Pitocin or other intramuscular uterotonic medications. She declined active management of the third stage of labor. At approximately 25 minutes the patient asked to check for placental location. The placenta was in vaginal vault and delivered spontaneously. Subsequently she had heavy vaginal bleeding due to uterine atony. Placenta was complete and intact. Patient authorized us to administer IV fluids and uterotonic's. Because these were not already in place there was a delay in responding to her hemorrhage except where IM Methergine and Cytotec per rectum were given immediately. A second large-bore IV was placed in anticipation of a blood transfusion. Despite uterotonic's and uterine massage and TXA the patient continued to bleed. She agreed to an exam under anesthesia and placement of a Bakri balloon. After proper informed consent was obtained and the patient was made aware the risk complication alternative benefits of the proposed procedure she was taken emergently to the operating room and placed in the supine position on the operating table. She underwent induction of general anesthesia. She is placed in dorsolithotomy position. She was prepped and draped you sterile fashion. A bivalve speculum was placed in the vagina. A ring forcep was used to grasp the antilipid the cervix. A banjo curette was used to curette the uterine cavity and no products of conception were obtained. Multiple blood clots were obtained with active heavy bleeding. The Bakri balloon was inserted in the uterine cavity and inflated to 400 cc with normal saline and connected to a CHRISTEN drain on suction. A Kerlix roll was placed in the vagina to tamponade the cervix and lower uterine segment. A Barton catheter was placed. 2 units of packed red blood cells were ordered to be transfused. Her total blood loss since delivery was 1200 cc. Prior to undergoing general anesthesia in the OR she consented to blood transfusion. The patient was hemodynamically stable at the end of the procedure. I discussed with the patient's the nature of her condition and the intraoperative findings expectation for recovery all questions answered. Specimen: none Estimated blood loss (ml): 1,200 Findings: 18 weeks size uterus mobile anteverted and boggy No cervical laceration Second-degree perineal laceration No retained products of conception No vaginal canal lacerations Complications: none Surgical staff Faustino Vo,ABDULAZIZ Harris, [facility] [employer]TER [employer] Diagnosis Discharge Diagnosis (1) hemorrhage: Status: Acute (2) Uterine atony, , current hospitalization: Status: Acute Problem List Completed Was Problem List Reviewed/Reconciled?: Yes (1) hemorrhage Qualifiers: hemorrhage type: other immediate Qualified Code(s): O72.1 - Other immediate hemorrhage
--- NOTE | 2024-10-17 14:32 | PD.LDDS ---
DS: Providers Provider Date of admission: 10/17/24 11:42 Primary care physician: Maura Gustafson PA-C([facility] Admitting Provider: Enoch Rizzo MD Attending Provider on Admission: Enoch Rizzo MD Attending Provider on DC: Enoch Rizzo MD Discharging Provider: Enoch Rizzo MD DS: Diagnosis Problem List Completed Was Problem List Reviewed/Reconciled?: Yes Summary/Hosp Course Brief History: 29 yo IUP 40w4d by best dates with PNC at OB Clinic presents to [facility] fully dilated per RN exam. Pt refused to allow me to check her. She reports normal movement and no bleeding or leaking. Her records says she had an abnormal 1 GTT and did not have a 3 GTT. Pt states that she had a 3 GTT and it was normal. I dont see any labs in her chart at this time. She has a history of 2 prior full-term normal vaginal deliveries at a birthing center without complication. Peripartum Data Delivery Method: Normal Vaginal Delivery Laceration Description: yes (2nd degree perineal) Procedures: Exam under Anesthesia Uterine curettage Placement of Bakri Balloon Repair of Perineal Laceration complications: perineal laceration and uterine atony 1: Gender: Female Time Spent with Patient Time attestation: Total time spent providing and/or coordinating discharge services: Exam Vital Signs Temp Pulse Resp BP Pulse Ox 97.3 F 61 16 115/69 98 10/17/24 11:40 10/17/24 13:30 10/17/24 11:40 10/17/24 13:30 10/17/24 11:33 Discharge Plan Plan Patient Disposition: HOME (Self Care) Patient condition on transfer: Stable Prescriptions/Referrals Prescriptions/Med Rec: New ibuprofen 600 mg tablet 600 mg PO Q6H PRN (Reason: pain) Qty: 30 0RF Referrals: Sj ([facility])Maura PA-C [Primary Care Provider] - Patient/Caregiver Discharge Instructions Discharge Activity: activity as tolerated Other Discharge Activity Instructions:: Follow with [facility] in 6 weeks. Print Language: Kazakh Stand Alone Forms: Loly Award Info., Patient Portal Info Letter Planned Discharge Date 10/19/24
--- NOTE | 2024-10-17 16:35 | OBDSUM_ITS ---
Data (Walker) Data Hx Section: No : 3 Term: 2 : 0 Livin Abortions: Spontaneous & Theraputic: 0 Delivery Data (Walker) Labor Data Initiation of labor: Spontaneous Induction/Augmentation Agent: None ROM date: 10/17/24 ROM time: 12:56 Amniotic membrane rupture type: Spontaneous Amniotic fluid description: Clear Delivery Data EDC: 10/13/24 EDC calculated by:: LMP/early US confirmation Date of arrival to unit: 10/17/24 Onset of labor date: 10/16/24 Onset of labor time: 23:00 Complete dilation date: 10/17/24 Complete dilation time: 11:29 [place] delivery date: 10/17/24 delivery time: 12:56 Gestational age (weeks): 40 Gestational age (days): 4 Placenta delivery date: 10/17/24 Placenta delivery time: 13:18 Stage 1 total time: Labor - Stage 1 Duration 12 hours and 29 minutes Delivered by: So KAM Delivery nurse: Zoya Stewart RN [place] nurse: Rosibel Lamar RN Loss Prevention Auditor at delivery: Yes (Allisonpriti) Support person(s) at delivery: FOB, sister of pt Other staff at delivery: Vladislav Greer RN Delivery Method Delivery method: Normal Vaginal Delivery Presentation: Vertex position: OA Anesthesia Type Anesthesia Type: None Anesthesia type: General Placenta Placenta delivery description: Spontaneous Cord blood sent to lab: Yes Episiotomy Episiotomy description: None Lacerations #1: Perineal: 2nd degree Perineal repair Sutures used for repair: 3.0 Chromic EBL Estimated blood loss (ml): 1,200 Umbilical Cord cord description: 3 Vessels Additional Procedures Taken to OR after placenta delivered due to hemorrhage due to uterine atony not responding to uterotonics or TXA. Complications Complications: Hemorrhage Data (Walker) Data order: 1 's gender: Female 1 minute: 8 5 minutes: 9 Additional Comments Additional comments: Patient refused to allow me to deliver the baby or protect her perineum from laceration. She delivered the baby in bed, lying on her left side. The head came out and she would not allow us to touch the baby. She laid without pushing for about 15 seconds with the head out but the shoulders undelivered. The baby made no grimace or respiratory effort. I advised her to push to make sure the shoulder was not stuck. She still would not let us touch the baby. She pushed and the baby delivered. She allowed us to finally suction the baby as the baby struggled to breath with multiple secretions. Airway cleared adequately with bulb suction and baby placed on mom's belly as we delayed cord clamping for several minutes per patients wishes. She waited for the placenta to deliver spontaneously and did not want us to assist or check for lacerations. She was not allowing any administration of uterotonics. She requested that we assist with placental delivery at about 25 minutes . Placenta was in the vaginal canal and easily removed complete and intact. She had no bleeding at all prior to the placental delivery. Blood had been collecting behind the placenta because as soon as the placenta delivered she started bleeding heavily. The uterus was atonic and heavy bleeding occured. She finally agreed to allow IV placement and IV fluids and Uterotonics and TXA. Despite uterotonics she continued to bleed so she was taken to the OR for placement of Bakri Balloon. She had lost 800 cc prior to going to the OR. The OR team was already present and the OR prepared because they were getting ready to deliver another patient by Delivery. See OP Report.
[2024-10-17] MEDS: ceFAZolin/D5W 2 GM IV 2 GM/100 ML BAG IV (17:11)
[2024-10-17] MEDS: BENZO/LANO/ALOE (Dermoplast) 60 GM CAN 1 SPRAY TOP (17:22)
[2024-10-17 19:23] LABS: HIV (1&2) Antibody Rapid Non-Reactive
[2024-10-17 20:14] LABS: Rubella, IgG Antibody Equivocal
[2024-10-17 20:17] LABS: Hepatitis B Surface Antigen Non Reactive (Non React)
[2024-10-17 21:05] LABS: Amphetamine/Metham Scrn,Ur OB Negative (Negative); Benzoylecgonine Screen, Ur OB Negative (Negative); Opiate Screen,Urine OB Negative (Negative); THC Screen,Urine OB Negative (Negative)
[2024-10-17 23:29] LABS: Basophils # (Auto) 0.0 Thou/mm3 (0.0-0.2); Basophils % (Auto) 0 % (0-2.5); Eosinophils # (Auto) 0.0 Thou/mm3 (0.0-0.5); Eosinophils % (Auto) 0 % (0-10); Hematocrit 36.1 % (36.0-46.0); Hemoglobin 12.5 g/dL (12.0-16.0); Immature Granulocytes Auto 0.04 Thou/mm3 (0.00-0.00); Lymphocytes # (Auto) 1.2 Thou/mm3 (1.0-4.8); Lymphocytes % (Auto) 11 % (10-50); Mean Corpuscular HGB Conc 34.6 g/dl (31.0-37.0); Mean Corpuscular Hemoglobin 30.2 pg (25.0-35.0); Mean Corpuscular Volume 87 fL (80-100); Monocytes # (Auto) 0.8 Thou/mm3 (0.0-0.8); Monocytes % (Auto) 7 % (0-12); Neutrophils # (Auto) 9.1 Thou/mm3 (1.8-7.7); Neutrophils % (Auto) 82 % (37-80); Nucleated Red Blood Cell # 0.00 Thou/mm3 (0.00-0.00); Nucleated Red Blood Cell % 0 /100 WBC (0); Platelet Count 134 Thou/mm3 (140-440); RDW Standard Deviation 40.5 fL (36.4-46.3); Red Blood Count 4.14 Miln/mm3 (4.00-5.20); White Blood Count 11.1 Thou/mm3 (3.6-11.0)
[2024-10-18] MEDS: ceFAZolin/D5W 2 GM IV 2 GM/100 ML BAG IV ×2 (00:55→09:07)
[2024-10-18] MEDS: RINGERS LACTATED 1000 ML 1,000 ML 100 ML IV (01:52)
--- NOTE | 2024-10-18 02:35 | PC.NURSE ---
pt called out related to IV pump alarming. rn in room. pt states she does not want IV fluids at this time. is ok with fluids when running ancef.
[2024-10-18 04:07] VITALS: BP 105/62; PULSE 69; RESP 16; TEMP 36.8
[2024-10-18 07:56] LABS: Basophils # (Auto) 0.1 Thou/mm3 (0.0-0.2); Basophils % (Auto) 1 % (0-2.5); Eosinophils # (Auto) 0.0 Thou/mm3 (0.0-0.5); Eosinophils % (Auto) 0 % (0-10); Hematocrit 35.4 % (36.0-46.0); Hemoglobin 12.2 g/dL (12.0-16.0); Immature Granulocytes Auto 0.05 Thou/mm3 (0.00-0.00); Lymphocytes # (Auto) 1.5 Thou/mm3 (1.0-4.8); Lymphocytes % (Auto) 15 % (10-50); Mean Corpuscular HGB Conc 34.5 g/dl (31.0-37.0); Mean Corpuscular Hemoglobin 30.3 pg (25.0-35.0); Mean Corpuscular Volume 88 fL (80-100); Monocytes # (Auto) 0.8 Thou/mm3 (0.0-0.8); Monocytes % (Auto) 8 % (0-12); Neutrophils # (Auto) 7.6 Thou/mm3 (1.8-7.7); Neutrophils % (Auto) 76 % (37-80); Nucleated Red Blood Cell # 0.00 Thou/mm3 (0.00-0.00); Nucleated Red Blood Cell % 0 /100 WBC (0); Platelet Count 143 Thou/mm3 (140-440); RDW Standard Deviation 41.4 fL (36.4-46.3); Red Blood Count 4.03 Miln/mm3 (4.00-5.20); White Blood Count 10.0 Thou/mm3 (3.6-11.0)
[2024-10-18 08:12] VITALS: BP 107/69; PULSE 74; RESP 17; TEMP 36.9
--- NOTE | 2024-10-18 08:48 | PC.NURSE ---
Dr. Macdonald removed bakri ballon and lira cath
[2024-10-18 09:08] LABS: Chlamydia trachomatis PCR Negative (Not Detect); Neisseria Gonorrhoeae DNA PCR Negative (Not Detect); Trichomonas Negative (Negative)
--- NOTE | 2024-10-18 09:30 | PD.LDPPPRG ---
Subjective Subjective Interval history: Patient doing well overall. Discomfort related to Bakri and vaginal packing being in place. Has lira draining clear yellow urine. Tolerating regular diet without nausea/vomiting. <25cc of blood in Bakri's CHRISTEN drain. No fevers/chills, no CP/SOB. Exam Vital Signs Temp Pulse Resp BP Pulse Ox O2 Del Method 98.4 F 74 17 107/69 95 Room Air 10/18/24 08:12 10/18/24 08:12 10/18/24 08:12 10/18/24 08:12 10/17/24 19:35 10/18/24 08:12 Narrative Exam General: well developed, well nourished, no acute distress, conversant Cardiac: normal heart rate Lungs: breathing without distress Abdomen: soft, post-gravid, non-tender, no rebound or guarding, Fundus firm at u-3cm. Extremities: no pain with palpation of calves, trace edema of BLE RN present for removal of Bakri balloon, vaginal packing and lira catheter. Patient gave permission for exam. There was less than 25cc of blood in the CHRISTEN drain. The fluid was removed from the Bakri balloon and the vaginal packing removed, Bakri removed, without issue. Lira catheter then deflated and removed as well. Patient feels relief with the pressure of the Bakri and packing gone now. Objective Labs 10/18/24 07:09 Labs: Laboratory Results - last 24 hr 10/17/24 10/17/24 10/17/24 11:50 17:42 19:00 WBC 9.9 RBC 4.14 Hgb 12.2 Hct 36.2 MCV 87 MCH 29.5 MCHC 33.7 RDW Std Deviation 41.3 Plt Count 154 Neut % (Auto) 82 H Lymph % (Auto) 10 [place] % (Auto) 7 Eos % (Auto) 0 Baso % (Auto) 1 Neut # (Auto) 8.1 H Lymph # (Auto) 1.0 [place] # (Auto) 0.7 Eos # (Auto) 0.0 Baso # (Auto) 0.1 Immature Gran # (Auto) 0.06 H Absolute Nucleated RBC 0.00 Immature Gran % 1 H Nucleated RBC % 0 Urine Opiates Screen Negative U Amphetamin/Meth Scrn Negative U Cocaine Metab Screen Negative U Marijuana (THC) Screen Negative Syphilis Serology Nonreactive Chlam trachomat DNA PCR Hep Bs Antigen Non Reactive HIV 1&2 Antibody Rapid Non-Reactive N.gonorrhoeae DNA (PCR) Rubella IgG Antibody Equivocal L Trichomonas DNA Probe Blood Type O Positive Antibody Screen NEGATIVE Crossmatch See Detail Blood Bank Wristband ID Yes 10/17/24 10/17/24 10/18/24 22:56 Unknown 07:09 WBC 11.1 H 10.0 RBC 4.14 4.03 Hgb 12.5 12.2 Hct 36.1 35.4 L MCV 87 88 MCH 30.2 30.3 MCHC 34.6 34.5 RDW Std Deviation 40.5 41.4 Plt Count 134 L 143 Neut % (Auto) 82 H 76 Lymph % (Auto) 11 15 [place] % (Auto) 7 8 Eos % (Auto) 0 0 Baso % (Auto) 0 1 Neut # (Auto) 9.1 H 7.6 Lymph # (Auto) 1.2 1.5 [place] # (Auto) 0.8 0.8 Eos # (Auto) 0.0 0.0 Baso # (Auto) 0.0 0.1 Immature Gran # (Auto) 0.04 H 0.05 H Absolute Nucleated RBC 0.00 0.00 Immature Gran % 0 1 H Nucleated RBC % 0 0 Urine Opiates Screen U Amphetamin/Meth Scrn U Cocaine Metab Screen U Marijuana (THC) Screen Syphilis Serology Chlam trachomat DNA PCR Negative Hep Bs Antigen HIV 1&2 Antibody Rapid N.gonorrhoeae DNA (PCR) Negative Rubella IgG Antibody Trichomonas DNA Probe Negative Blood Type Antibody Screen Crossmatch Blood Bank Wristband ID Assessment & Plan Problem List (1) hemorrhage: Status: Acute Assessment and plan: Cruz is a 29yo [id number] s/p complicated by PPH after presenting in labor, doing well on PPD 1. She refused all interventions including uterotonics initially. PPH required uterotonics, EUA under GETA with curettage and placement of Bakri intra-uterine balloon. 1200ml EBL, s/p 2u pRBCs. Hgb stable 12.2 from 12.5. Bakri, vaginal packing and lira catheter removed this morning without issue. Well tolerated. She has been receiving ancef for prophylaxis. Vitals wnl, benign exam. Hemodynamically stable with no evidence of infection. Plan: -Continue routine care -Patient to ambulate and will closely observe bleeding and vitals today. If meeting all milestones this afternoon, will discharge home -Continue ancef for 1 more dose -Regular diet -I had a long discussion with patient and her regarding the physiology of PPH and necessity of uterotonics and Bakri. We discussed that next step would have been hysterectomy had uterotonics and Bakri not succeeded in stopping PPH. Discussed optimal spacing is 18 months. Discussed she has risk for PPH in the future because she had PPH with this delivery. Discussed importance of delivering in a hospital in the future. (2) Uterine atony, , current hospitalization: Status: Acute (3) Blood transfusion during current hospitalization: Status: Acute Time Spent With Patient Time: Total time spent is greater than 50% in coordination of care (as documented) at patient's floor/unit and/or counseling patient:
--- NOTE | 2024-10-18 10:28 | PC.NURSE ---
Pt refusing PKU and hearing test for baby. Signed declanation
[2024-10-18 11:40] VITALS: BP 103/62; PULSE 70; RESP 18; TEMP 36.9
--- NOTE | 2024-10-18 12:08 | PC.CC ---
0900-ASW completed a face to face biopsychosocial assessment with the pt at bedside. Present was OFFICE WORKFORCE PLANNER Binder Cutter Hand Tammy Vicente, infant and FOB Andrzej Parra [birth year]. ASW explained the reason for the referral as it was reported by the assigned RN that pt was late to care. ASW introduced self, role, and reason for assessment. ASW disclosed limits of confidentiality as well. Patient appeared alert and oriented to self, place, and situation. Patient was pleasant; her mood appeared content and happy; her behavior appeared calm. Patient?s thought process was linear and organized. No signs of delusions, paranoid or AVH. Pt confirmed her demographics and insurance information which is Medi-call managed by [facility]. Pt reported she was late to care because she was afraid of the hospital care and stated she did not have medi-angela at that time and waited until her medi-angela kicked in so she would not have to pay out of pocket. Pt reported she delivered at 40 weeks and 4 days gestational age and delivered vaginally. score of 8/9. Pt reported that her last two children, she had to pay out of pocket for the and delivery services. Pt reported she has two children at home, ages 3 and 1. Pt reported she delivered the at 40 weeks, 4 days gestational age on 10/17/24. score of 8/9. Pt stated her OB was Dr. Paige and the infants Peds will be Dr. Ignacia Anna at the [facility] in [place]. Pt reported her pharmacy is [facility] located on [facility]. Pt stated she receives WIC and Food stamps in the amount of $1,000 and does not receive corbett aid. Pt reports she does her own ADLs and does not use DME or O2. Pt reported the infant was not on lights and she declined the hearing test provided by the hospital. Pt reported she is breast feeding and does not need the solar sales consultant services. Pt denies drug/alcohol use or history of it and denies CWS/CPS history. Pt reports she is ready for the infant and has enough baby items at home such as diapers and clothing. FOB reported that he will be transporting the pt and infant home when they are ready for discharge. Pt reports she has family support for emotional and baby support. ASW provided community resources to the [place] [facility], local mental health agencies, [phone] and to [facility] agencies. The pt was receptive. FOB was viewed to be bonding appropriately with the upon entry while pt was resting with pillows against her stomach. At this time, there are no SS concerns with the pt and family.
--- NOTE | 2024-10-18 15:31 | PD.LDDS ---
DS: Providers Provider Date of admission: 10/17/24 11:42 Primary care physician: Maura Gustafson PA-C([facility] Admitting Provider: Enoch Rizzo MD Attending Provider on Admission: Enoch Rizzo MD Consults: 10/17/24 14:50 Referral Routine Comment: Attending Provider on DC: Yulissa Macdonald MD Discharging Provider: Yulissa Macdonald MD DS: Diagnosis Discharge Diagnosis (1) hemorrhage: Status: Acute (2) Uterine atony, , current hospitalization: Status: Acute (3) Blood transfusion during current hospitalization: Status: Acute Problem List Completed Was Problem List Reviewed/Reconciled?: Yes Summary/Hosp Course Brief History: 29 yo IUP 40w4d by best dates with [facility] presents to [facility] fully dilated per RN exam. Pt refused to allow me to check her. She reports normal movement and no bleeding or leaking. Her records says she had an abnormal 1 GTT and did not have a 3 GTT. Pt states that she had a 3 GTT and it was normal. I dont see any labs in her chart at this time. She has a history of 2 prior full-term normal vaginal deliveries at a birthing center without complication. ----- Cruz is a 29yo [id number] s/p complicated by PPH after presenting in labor, doing well on PPD 1. She refused all interventions including uterotonics initially. PPH required uterotonics, EUA under GETA with curettage and placement of Bakri intra-uterine balloon. 1200ml EBL, s/p 2u pRBCs. Hgb stable 12.2 from 12.5. Bakri, vaginal packing and lira catheter removed this morning without issue. Well tolerated. She has been receiving ancef for prophylaxis. She is now meeting all milestones and feels ready for discharge home. She is ambulating without lightheadedness, tolerating regular diet no n/v, spontaneously voiding without issue. She has no chest pain or shortness of breath. No fevers or chills. Minimal, appropriate discomfort. Vitals normal, benign exam. Hemodynamically stable with no evidence of infection. Peripartum Data Delivery Method: Normal Vaginal Delivery Episiotomy Description: None Procedures: Procedures Operation Date: 10/17/24 13:45 Actual Procedure Side Surgeon p Bleeding control-OB Womens services Not Applicable Enoch Rizzo MD Status at Discharge Functional status at discharge: independent ambulation Overall status at discharge: patient is back to baseline Time Spent with Patient Time attestation: Total time spent providing and/or coordinating discharge services: Exam Vital Signs Temp Pulse Resp BP Pulse Ox O2 Del Method 98.4 F 70 18 103/62 95 Room Air 10/18/24 11:40 10/18/24 11:40 10/18/24 11:40 10/18/24 11:40 10/17/24 19:35 10/18/24 11:40 Narrative Exam General: well developed, well nourished, no acute distress, conversant Cardiac: normal heart rate Lungs: breathing without distress Abdomen: soft, post-gravid, non-tender, no rebound or guarding, Fundus firm at u-3cm. Extremities: no pain with palpation of calves, trace edema of BLE Discharge Plan Plan Patient Disposition: HOME (Self Care) Patient condition on transfer: Stable Prescriptions/Referrals Prescriptions/Med Rec: New ibuprofen 600 mg tablet 600 mg PO Q6H PRN (Reason: pain) Qty: 30 0RF docusate sodium [Colace] 100 mg capsule 100 mg PO BID Qty: 20 0RF Referrals: Sj ([facility]HANS Lorenzo [Primary Care Provider] - Patient/Caregiver Discharge Instructions Discharge Activity: activity as tolerated Other Discharge Activity Instructions:: Follow with [facility] in 6 weeks. Education Materials: After a Vaginal , Hemorrhage Print Language: Thai Activity Restrictions/Additional Instructions: vaginal rest for 6 weeks, no heavy lifting more than 10 pounds. Stand Alone Forms: Loly Award Info., Patient Portal Info Letter Discharge Order Discharge Orders: Discharge (Routine); Ordered 10/18/24 Ordered By: Yulissa Macdonald Planned Discharge Date 10/18/24 (1) hemorrhage Qualifiers: hemorrhage type: other immediate Qualified Code(s): O72.1 - Other immediate hemorrhage
[2024-10-18 15:40] VITALS: BP 102/63; PULSE 73; RESP 18; TEMP 36.7; O2SAT 97
== END 2024-10-18 17:58 | disposition home or self-care (01) | DRG 542 ==
LOC: S4SX 15:15 → S4NX 16:07
PROVIDERS: Admitting Provider Specialist; PCP Physician Assistant; Visit Provider Specialist
PROC: 10E0XZZ Delivery of Products of Conception, External Approach (ICD-10-PCS; CPT 58120; principal; 2024-10-17 13:30)
DX: O48.0 Post-term pregnancy (principal); O70.1 Second degree perineal laceration during delivery; O72.1 Other immediate postpartum hemorrhage; Z3A.40 40 weeks gestation of pregnancy; Z37.0 Single live birth
CPT/HCPCS: 36415; 59409; 80307; 85025; 86703; 86762; 86780; 86850; 86900; 86901; 86923; 87340; 87491; 87591; 87661; 94762; A4217; A4649; J0330; J0689; J2210; J2250; J2274; J2590; J2704; J3010; J3490; J7120; P9016; S0191; A9270; J1596; J2270; J7999

== ENCOUNTER 2024-11-15 09:34 | Outpatient (AMB) | payer MEDICAID, SELFPAY ==
[2024-11-15 09:43] VITALS: BP 114/75; PULSE 78; RESP 14; TEMP 35.2; O2SAT 97; BMI 20.7
--- NOTE | 2024-11-15 09:43 | AMBOBPPN_ITS ---
Vital Signs 11/15/24 09:43 Height 1.63 m Height Method Stated Weight 54.885 kg Weight Measurement Method Standing Scale BMI 20.7 BP 114/75 Blood Pressure Source Automatic Cuff Blood Pressure Location Left Upper Arm Position Sitting Respiration 14 Pulse 78 Pulse Source Monitor Temp 95.4 F L Temp Source Oral Pulse Oximetry (%) 97 Oxygen Delivery Method Room Air Allergies/Home Meds Allergies & Medications Allergies No Known Allergies Allergy (Verified 11/15/24 09:44) Medication Reconciliation docusate sodium 100 mg capsule (Colace) 100 mg PO BID #20 caps 10/18/24 [Rx Confirmed 11/15/24] Intake Visit Data Collection New Patient or Established: Established Patient (seen at [facility] within 3 years) Reason for Visit:: Seen by Clinical Staff ONLY (RN/MA): No Chainstitch Seat Joiner Required: No Do You Feel Safe at Home: Yes Authorities Contacted: N/A PCP or OBGYN visit in last 3 months: Yes Hx Now: No Are you currently on any form of Control: No Pain Present Currently: No Pain Scale Used: Dewitt-Gil/Numerical Pain scale:: 0 Smoking Status Smoking Status: Never smoker CONTRACTS SPECIALIST: Past Medical History Additional Operations/Hospitalizations (year & reason): x 2 in 2021 and 2023 at a birthing center near [place] without complications Other Relevant History: No significant past medical history including asthma, diabetes, or hypertension Questionnaires Covid-19 Vaccine Questionnaire Has patient been vacinated for Covid-19 Have you been vacinated for Covid-19: Yes Social History Living Situation History Marital Status: Lives With: Family Housing: House Housing Other:: Patient stays home with her 3-year-old daughter and 1-year-old son. Tobacco History Smoking Status: Never smoker Second Hand Smoke Exposure: No Alcohol History Alcohol Intake: Never Domestic Abuse History Do You Feel Safe at Home: Yes EPDS - PP Depression Screening Benedict Pospartum Depression Screen I have been able to laugh and see the funny side of things: (0) As much as I always could I have looked forward with enjoyment to things: (0) As much as I ever did I have blamed myself unnecessarily when things went wrong: (0) No, never I have been anxious or worried for no good reason: (0) No, not at all I have felt scared or panicky for no very good reason: (0) No, not at all Things have been getting on top of me: (0) No, I have been coping as well as ever I have been so unhappy that I have had difficulty sleeping: (0) No, not at all I have felt sad or miserable: (0) No, not at all I have been so unhappy that I have been crying: (0) No, never The thought of harming myself has occurred to me: (0) Never Total Score: EPDS Score: Referral is indicated for score of 9 or more, suicidal, or if provider believes patient is depressed regardless of score.: 0 EPDS completed yes Care OB Visit Log OB Flowsheet Initial Weight: Not Recorded Date -?-?-?-?-?-?-?-?-?-?-?-?- EGA Weight BP Alb Glu CTX Pres Fundal ht FHR Mov Dilation Station Effacement Hx Notes Visit Note 06/23/24 -?-?-?-?-?-?-?-?-?-?-?-?- 24w 0d 54.885 kg 99/58 140 active Fundal height 24. No bleeding no cramping. labs and structural survey ordered. 07/21/24 -?-?-?-?-?-?-?-?-?-?-?-?- 28w 0d 57.153 kg 102/60 28 150 active Positive movement no bleeding no loss of fluids. I had ordered a structural survey this has not been authorized yet. Order again. 09/24/24 -?-?-?-?-?-?-?-?-?-?-?-?- 37w 2d 61.292 kg 113/65 occasional cephalic 37 active Patient feels good movement and feels pressure. Reny mcgrath has a plan. 10/04/24 -?-?-?-?-?-?-?-?-?-?-?-?- 38w 5d 60.781 kg 103/67 occasional cephalic 36 143 active 1.5 -1 80 Patient feels pressure. Good movement no vaginal bleeding Group B strep drawn today 10/13/24 -?-?-?-?-?-?-?-?-?-?-?-?- 40w 0d 61.462 kg 113/75 occasional cephalic 35 156 active 3 -1 80 Occasional contractions no loss of fluid or vaginal bleeding Group B strep negative RIDGE done today 7.4 vertex presentation NEVA Calculator Estimated Delivery Date Method Current WG Current Estimate 10/13/24 Ultrasound #1 44w 5d Other Estimates 10/14/24 LMP (Certain) 44w 4d Expected Delivery Route/Plan Patient had vaginal delivery x 2 in the past at a birthing center. Anticipate . Patient will probably want to labor and deliver as natural as possible. Specific Issue/Plans labs up-to-date on the chart: O+/antibody negative/rubella nonimmune/RPR nonreactive/HIV negative/GC negative/chlamydia negative/urine culture negative/1 hour glucose elevated 158/no 3-hour glucose done OB [facility] 28 weeks SS WNL Notes Visit Date: 10/13/24 Last Updated by: Latrice Arenas ([facility] Clinic)MD Patient declined stripping membranes. Return in 1 week NST weekly starting Friday. Wants to go into labor on her own. Delivered at the center last time. Has plan. Visit Date: 10/04/24 Last Updated by: Latrice Arenas ([facility])MD Labor precautions given. Patient has plan and would like to labor at home as long as possible. She would like to leave with the baby as soon as possible after . Visit Date: 09/24/24 Last Updated by: Latrice Arenas ([facility])MD Discussed patient's plan. She has nothing written but she read it to me on her phone. She prefers no IV. She will take IM Pitocin. She prefers delayed cord clamping. She wants to ambulate in labor. She wants to go as natural as possible. She is also requesting no male providers. We did discuss at length that I am not sure I can guarantee that she is going to have a female provider. She does not want to be induced. She would like to leave the hospital soon as possible with her baby. She is going to decline vitamin K eyedrops and hep B vaccine for the baby. Patient delivered at [facility] last time in [place]. Her sister is present today who will be there and labor. Visit Date: 06/23/24 Last Updated by: Latrice Arenas ([facility])MD Patient is a 28-year-old -0-0-2 status post vaginal delivery x 2 in the past both were delivered in [place] and both at a birthing center. Patient has moved home this . She is staying home to take care of her children. She is still breast-feeding the 1-year-old. Her mother is with her today as is her 3-year-old daughter. LMP 01/08/2024 EDC 10/13/2024. HPI Interval History: The patient is a 29-year-old -0-0-3 status post vaginal delivery by Dr Rizzo on 10/17/2024. The patient presented with a plan. She presented complete. She delivered the baby without complications however she would not allow an IV or any uterotonic's to be given. She would not allow Dr Rizzo to actively manage the third stage of labor. Eventually the placenta delivered 25 minutes after the baby delivered followed by a severe hemorrhage. The patient had an IV started and all uterotonic's given. The patient nomiuna matty continued to bleed and had to be taken to the operating room by Dr Rizzo for a exam under anesthesia, a curettage, placement of a Bakri balloon and a second-degree perineal laceration repair. The patient received 2 units of packed red blood cells. She was discharged home day #1 in stable condition. Today the patient presents with her and her baby girl. She is breast-feeding. She wants to know when she can exercise. She states that a couple weeks ago she started to have more bleeding was very concerned and put herself on bedrest for one week she feels her bleeding is minimal now. She does not want to be examined today. Was or delivery considered high risk: No Delivery type: vaginal Was labor induced: no Gestational age at delivery (weeks): 40 Delivery date: 10/17/24 Delivering provider: Dr Rizzo Delivery complications: Yes Delivery complications comment: hemorrhage, requiring an exam under general anesthesia, curettage, and placement of a Bakri balloon. Is patient infant: Yes Is patient sexually active: No Contraception planned: None Review of Systems Review of Systems ROS limited to current CONTRACTS SPECIALIST complaints: No Narrative Review of Systems: No fevers chills heavy vaginal bleeding no dysuria. Patient denies depression. She is breast-feeding without difficulty. Exam General Limitations: no limitations General Appearance: alert, in no apparent distress, comfortable, cooperative, healthy appearing and well groomed Chest Chest inspection: Present normal inspection and symmetric chest wall rise Resp Respiratory exam: Present normal lung sounds bilaterally Card Cardiovascular exam: Present regular rate, normal rhythm and normal heart sounds Abdominal Abdominal exam: Present soft and normal bowel sounds Extremities Extremities exam: Present normal inspection and full ROM Psych Psychiatric exam: Present normal affect and normal mood Skin Skin exam: Present warm, dry, intact and normal color Office Procedures [facility] LOC & Office Proc's Nursing/Assessment Patient Status: Established Patient OB Clinic Nursing Assessment: Medication Reconciliation, Update PMH in EMR and Vital Signs OB Clinic Coordination of Care: Complex Care and Chronic Disease 1-5, Consent,records obtained, informed consent, Education Simp Pt/Fam, Lab and Imaging orders, Results/Orders obtained and Staff clarify orders Special Needs: Heart tones Established Patient Charge Established Patient Point Assignment: 135 Established Patient Point Charge: EP Level 4 (120-155) Assessment & Plan Diagnosis / Problem List (1) Routine Follow-Up: (2) care following vaginal delivery: Status: Acute Plan: Patient can exercise in about a week or two. [place] in about 2 weeks. Encouraged patient to drink lots of fluids and consume high calorie meals as she is quite thin with a BMI of 20 today. Patient will follow-up yearly or as n eeded. Care Reviewed delivery summary and any complications: Yes Uterus involuted to: 6 weeks Perineal / incision healing noted: Yes Screened for depression: Yes Depression counseling provided: No Discussed family planning & contraception: Yes Contraception planned: None Counseling on safe resumption of sexual activity: Yes Counseling on gradual excercise: Yes Discussed and concerns (describe), provided support: Yes Referred to cad application support specialist: No Counseled on good nutrition, hydration, and self care: Yes Reviewed vaccine status: No Chronic & current problems reconciled on problem list: Yes Additional follow up plans: Follow-up in a year for an annual exam Infant care discussed; questions answered: feeding and sleep Follow up: routine/prn (FP) Tobacco Smoking Status: Never smoker (QUALITY REP) 2hr glucose: No Return of menses: No : 3 Parity: 3 Resuming intercourse: Yes control method: none Gender: female Date of delivery: 10/17/24 Route of delivery: Delivering provider: Dr Rizzo Order: steve Delivery outcome: liveborn Delivery complications: hemorrhage and transfusion Other delivery details: Exam under general anesthesia, curettage and placement of Bakri balloon for hemorrhage Interim details: no feeding problems and nursing Interim complaints: none concerns: none Benedict score: 0
== END 2024-11-15 10:06 | disposition home or self-care (01) ==
LOC: HODSOBC 09:34
PROVIDERS: PCP Physician Assistant; Referring Provider Physician Assistant; Supervising Provider Obstetrics & Gynecology; Visit Provider Obstetrics & Gynecology
DX: Z39.2 Encounter for routine postpartum follow-up (principal); Z39.1 Encounter for care and examination of lactating mother
CPT/HCPCS: 99214; G0463